=== PATIENT | female | born 1955 | race Caucasian/White ===

== ENCOUNTER 2025-02-22 10:07 | Outpatient (AMB) | payer OTHER, SELFPAY ==
--- NOTE | 2025-02-22 10:11 | A.OFFPC_ITS ---
Vital Signs 02/22/25 10:14 Height 5 ft 2.99 in Weight 172 lb 2 oz BMI 30.5 BP 120/70 Blood Pressure Location Lt brachial Position Sitting Pulse 76 Pulse Source Pulse Oximeter Temp 97.1 F Temp Source Temporal Artery Scan Intake Visit Reasons: establish care Intake Note: Patient is a new patient here to establish care for RA, DM, HTN, HLD. Transferring care from Dr Moses Mims ([facility]). Medical records have been requested and have not received. Mobile Designer Required: No Cook Cashier Food Prep: Not Required per policy Accompanied by: Self / Same As Patient Allergies celecoxib [From Celebrex] Allergy (Intermediate, Verified 02/22/25 10:43) Rash Medication List - Last Reconciled 02/22/25 by BITA Monreal alendronate 70 mg PO QWEEK aspirin 81 mg PO DAILY atorvastatin 40 mg PO DAILY cholecalciferol (vitamin D3) 50 mcg PO DAILY cyanocobalamin (vitamin B-12) 500 mcg PO DAILY etanercept (Enbrel) 50 mg subcut QWEEK folic acid 1 mg PO DAILY lisinopril 10 mg PO DAILY metformin 500 mg PO BID methotrexate sodium 15 mg PO QWEEK omeprazole 20 mg PO DAILY Tobacco use date assessed: 02/22/25 Fall risk assessment: 1 Fall in past year Last assessed Fall Risk: 02/22/25 Dental Screening Dental Screen Date: 02/22/25 Did you have a dental visit in the last 12 months?: No Did you have a dental problem in the last 6 months where you did not have access to dental care?: No Was dental information given to patient?: No HPI establish care HPI Details Previous PCP: Dr. Lucas, [facility] Last visit: last year Last PE: same Specialist: rheumatology, needs podiatry OBGYN: hysterectomy Past medical history: DM, HTN, HLD, RA Medications: Family HX: Problem: Reports that she need a sales account manager for Diabetic foot care Reports difficultly holding her urine sometime Reports getting the urge and if she does not go right away, she gets the leakage urge to go and if she does go right a way, she gets the leakage will refer her to urology, she denies any other urinary symptom RA-hurts in hands/feet and knees reports needing a right knee but she is not doing it She has a Dexa Scan pending in April, was ordered by her rheumatology (Dr. Johnson) No chest pain,sob, heart palpitation No abominal pain/change in bowel habit [facility] Medical History (Updated 02/22/25 @ 11:02 by BITA Monreal) Rheumatoid arthritis HTN (hypertension) HLD (hyperlipidemia) Diabetes mellitus Surgical History (Updated 02/22/25 @ 10:25 by JUANA Orozco) History of hysterectomy History of hernia repair History of cholecystectomy History of 3 sections Social History (Updated 02/22/25 @ 10:12 by JUANA Orozco) Housing: House Alcohol intake: never Patient Tobacco Use Status: Never used Tobacco e-Cigarette/Vaping Use: Never Used Second Hand Smoke Exposure: No service: No Current occupational status: retired Cognitive needs: No Hearing needs: No Vision needs: Yes (Glasses) Questionnaire PHQ-9 Over the last 2 weeks, how often have you been bothered by any of the following problems? 1. Little interest or pleasure in doing things: not at all 2. Feeling down, depressed, or hopeless: not at all 3. Trouble falling or staying asleep, or sleeping too much: not at all 4. Feeling tired or having little energy: not at all 5. Poor appetite or overeating: not at all 6. Feeling bad about yourself - or that you are a failure or have let yourself or your family down: not at all 7. Trouble concentrating on things, such as reading the newspaper or watching television: not at all 8. Moving or speaking so slowly that other people could have noticed. Or the opposite - being so fidgety or restless that you have been moving around a lot more than usual: not at all 9. Thoughts that you would be better off or of hurting yourself in some way: not at all Total score: 0 Depression Screening Interpretation: Negative Depression Screening Done: Yes Source: Developed by Drs. Dominic Morin, Georgia Bentley, Shravan Meadows and colleagues, with an educational helen from [employer]. Thrive Questionnaire Date Thrive assessed: 02/20/25 I am a: Patient What is your living situation today?: I have a steady place to live Within the past 12 months, did the food you bought not last and you didn't have the money to get more?: Sometimes True Within the past 12 months, did you worry whether your food would run out before you got money to buy more?: Sometimes True Do you have trouble paying for medicines?: No Do you have trouble getting transportation to medical appointments?: No Do you have trouble paying your heating and electricity bill?: Yes Do you have trouble taking care of your child, family member or friend?: No Do you have trouble with day-to-day activities such as bathing, preparing meals, shopping, managing finances, etc.?: No Are you currently unemployed and looking for a job?: No Are you interested in more education?: No Currently or been in a relationship where the following occur: I choose not to answer THRIVE Score: 3 AUDIT C Alcohol Use Questionnaire (AUDIT-C) 1. How often do you have a drink containing alcohol?: Never 2. How many drinks containing alcohol do you have on a typical day when you are drinking?: 1 or 2 3. How often do you have six or more drinks on one occasion?: Never Total Score: 0 VARSHA-7 AMB Questionnaire VARSHA-7 Date VARSHA - 7 assessed: 02/22/25 Feeling nervous, anxious, or on edge: 0 = Not at all Not being able to stop or control worryin = Not at all Worrying too much about different things: 1 = Several days Trouble relaxin = Not at all Being so restless that it is hard to sit still: 0 = Not at all Becoming easily annoyed or irritable: 0 = Not at all Feeling afraid as if something awful might happen: 0 = Not at all Total VARSHA-7 score (0-4 normal; 5-9 mild; 10-14 moderate; 15-21 severe): 1 Source: Developed by Drs. Dominic Morin, Georgia Bentley, Shravan Meadows and colleagues, with an educational helen from [employer]. Physical exam (Primary Care) Vital Signs: Last Vital Signs Temp 97.1 F 02/22/25 10:14 Pulse 76 02/22/25 10:14 BP 120/70 02/22/25 10:14 BMI result Body Mass Index 30.5 Tobacco/Smoking Status: Tobacco use Status Tobacco use date assessed 02/22/25 02/22/25 10:27 Patient Tobacco Use Status Never used Tobacco 02/22/25 10:27 e-Cigarette/Vaping Use Never Used 02/22/25 10:27 PHQ-9: PHQ-9 Score PHQ-9: Total score 0 02/22/25 10:27 Depression Screening Interpretation: Negative Thrive Assessment: Date of Thrive Assessment Date Thrive assessed 02/20/25 02/22/25 10:27 Currently or been in a relationship where the following occur: I choose not to answer Results AMB Hemoglobin A1c AMB Hemoglobin A1c 7.2 % Last Edit by JUANA Orozco on 02/22/25 10:40 Results Reviewed Results Reviewed: Laboratory Last Values Hgb A1c (Clinic) 7.2 % (4.0-6.0) H 02/22/25 10:27 Coding Assessment & Plan Assessment & Plan Orders: Orders AMB Hemoglobin A1c Today Z13.9 - Encounter for screening, unspecified Comprehensive [place]. Panel Fast Today E11.9 - Type 2 diabetes mellitus without complications, E78.5 - Hyperlipidemia, unspecified, I10 - Essential (primary) hypertension, M06.9 - Rheumatoid arthritis, unspecified, Z00.00 - Encounter for general adult medical examination without abnormal findings Lipid Panel Today E11.9 - Type 2 diabetes mellitus without complications, E78.5 - Hyperlipidemia, unspecified, I10 - Essential (primary) hypertension, M06.9 - Rheumatoid arthritis, unspecified, Z00.00 - Encounter for general adult medical examination without abnormal findings TSH reflex Free T4 Today E11.9 - Type 2 diabetes mellitus without complications, E78.5 - Hyperlipidemia, unspecified, I10 - Essential (primary) hypertension, M06.9 - Rheumatoid arthritis, unspecified, Z00.00 - Encounter for general adult medical examination without abnormal findings Complete Blood Count Auto Diff Today E11.9 - Type 2 diabetes mellitus without complications, E78.5 - Hyperlipidemia, unspecified, I10 - Essential (primary) hypertension, M06.9 - Rheumatoid arthritis, unspecified, Z00.00 - Encounter for general adult medical examination without abnormal findings UA CC w/rflx Micro + Cult Today E11.9 - Type 2 diabetes mellitus without complications, E78.5 - Hyperlipidemia, unspecified, I10 - Essential (primary) hypertension, M06.9 - Rheumatoid arthritis, unspecified, Z00.00 - Encounter for general adult medical examination without abnormal findings Vitamin D 25-OH Total Today E11.9 - Type 2 diabetes mellitus without complications, E78.5 - Hyperlipidemia, unspecified, I10 - Essential (primary) hypertension, M06.9 - Rheumatoid arthritis, unspecified, Z00.00 - Encounter for general adult medical examination without abnormal findings Medications: New folic acid 1 mg PO DAILY 90 tabs 3RF
[2025-02-22 10:14] VITALS: BP 120/70; PULSE 76; TEMP 36.2; BMI 30.5
== END 2025-02-22 11:13 | disposition home or self-care (01) ==
LOC: HO.HMCH 10:08
DX: Z13.9 Encounter for screening, unspecified (principal)

== ENCOUNTER → 2025-02-22 10:07 | Outpatient (BNVA) | payer MEDICARE, SELFPAY | DX: H61.23 Impacted cerumen, bilateral (principal); N39.46 Mixed incontinence; M05.79 Rheumatoid arthritis with rheumatoid factor of multiple sites without organ or systems involvement; E11.9 Type 2 diabetes mellitus without complications; E78.5 Hyperlipidemia, unspecified; I10 Essential (primary) hypertension | CPT/HCPCS: 83036; 96127 ==

== ENCOUNTER 2025-03-16 14:37 | Outpatient (AMB) | payer OTHER, SELFPAY ==
--- NOTE | 2025-03-16 14:44 | A.OFFPC_ITS ---
Vital Signs 03/16/25 14:45 03/16/25 15:02 03/16/25 15:09 Height 5 ft 2.99 in Weight 174 lb BMI 30.8 BP 172/80 H 140/80 H 132/68 Blood Pressure Location Lt brachial Lt brachial Lt brachial Position Sitting Sitting Sitting Pulse 101 H 78 Pulse Source Pulse Oximeter Pulse Oximeter Temp 97.1 F Temp Source Temporal Artery Scan Pulse Oximetry (%) 93 Oxygen Delivery Method Room Air Intake Visit Reasons: Ear Flush Intake Note: Patient is here to follow up on Ear flush. Dance Master Required: No Seamless Tube Roller: Not Required per policy Accompanied by: Self / Same As Patient Allergies celecoxib [From Celebrex] Allergy (Intermediate, Verified 03/16/25 14:45) Rash Medication List - Last Reconciled 03/16/25 by Diane Sage PA-C alendronate 70 mg PO QWEEK aspirin 81 mg PO DAILY atorvastatin 40 mg PO DAILY cholecalciferol (vitamin D3) 50 mcg PO DAILY cyanocobalamin (vitamin B-12) 500 mcg PO DAILY etanercept (Enbrel) 50 mg subcut QWEEK folic acid 1 mg PO DAILY lisinopril 10 mg PO DAILY metformin 500 mg PO BID methotrexate sodium 15 mg PO QWEEK omeprazole 20 mg PO DAILY Tobacco use date assessed: 03/16/25 Fall risk assessment: No Falls in past year Last assessed Fall Risk: 03/16/25 Dental Screening Dental Screen Date: 02/22/25 HPI Ear Flush HPI Details 69-year-old female coming to the office for ear cleaning. [facility] Medical History Rheumatoid arthritis HTN (hypertension) HLD (hyperlipidemia) Diabetes mellitus Surgical History History of hysterectomy History of hernia repair History of cholecystectomy History of 3 sections Social History Housing: House Alcohol intake: never Patient Tobacco Use Status: Never used Tobacco e-Cigarette/Vaping Use: Never Used Second Hand Smoke Exposure: No service: No Current occupational status: retired Cognitive needs: No Hearing needs: No Vision needs: Yes (Glasses) Questionnaire PHQ-9 Over the last 2 weeks, how often have you been bothered by any of the following problems? 1. Little interest or pleasure in doing things: nearly every day 2. Feeling down, depressed, or hopeless: not at all 3. Trouble falling or staying asleep, or sleeping too much: not at all 4. Feeling tired or having little energy: not at all 5. Poor appetite or overeating: not at all 6. Feeling bad about yourself - or that you are a failure or have let yourself or your family down: not at all 7. Trouble concentrating on things, such as reading the newspaper or watching television: not at all 8. Moving or speaking so slowly that other people could have noticed. Or the opposite - being so fidgety or restless that you have been moving around a lot more than usual: not at all 9. Thoughts that you would be better off or of hurting yourself in some way: not at all Total score: 3 Depression Screening Interpretation: Positive Depression Screening Done: Yes Source: Developed by Drs. Dominic Morin, Georgia Bentley, Shravan Meadows and colleagues, with an educational helen from [employer]. Thrive Questionnaire Date Thrive assessed: 02/20/25 I am a: Patient What is your living situation today?: I have a steady place to live Within the past 12 months, did the food you bought not last and you didn't have the money to get more?: Sometimes True Within the past 12 months, did you worry whether your food would run out before you got money to buy more?: Sometimes True Do you have trouble paying for medicines?: No Do you have trouble getting transportation to medical appointments?: No Do you have trouble paying your heating and electricity bill?: Yes Do you have trouble taking care of your child, family member or friend?: No Do you have trouble with day-to-day activities such as bathing, preparing meals, shopping, managing finances, etc.?: No Are you currently unemployed and looking for a job?: No Are you interested in more education?: No Currently or been in a relationship where the following occur: I choose not to answer THRIVE Score: 3 VARSHA-7 AMB Questionnaire VARSHA-7 Date VARSHA - 7 assessed: 02/22/25 Source: Developed by Drs. Dominic Morin, Georgia Bentley, Shravan Meadows and colleagues, with an educational helen from [employer]. Review of Systems ENT Details: Ear clogged feeling and decreased hearing bilaterally Physical exam (Primary Care) Vital Signs: Last Vital Signs Temp 97.1 F 03/16/25 14:45 Pulse 78 03/16/25 15:09 BP 132/68 03/16/25 15:09 Pulse Ox 93 03/16/25 14:45 Oxygen Delivery Method Room Air 03/16/25 14:45 BMI result Body Mass Index 30.8 Tobacco/Smoking Status: Tobacco use Status Tobacco use date assessed 03/16/25 03/16/25 14:53 Patient Tobacco Use Status Never used Tobacco 03/16/25 14:44 e-Cigarette/Vaping Use Never Used 03/16/25 14:44 PHQ-9: PHQ-9 Score PHQ-9: Total score 3 03/16/25 15:02 Depression Screening Interpretation: Positive Thrive Assessment: Date of Thrive Assessment Date Thrive assessed 02/20/25 03/16/25 14:44 Currently or been in a relationship where the following occur: I choose not to answer Const General: cooperative, healthy appearing, comfortable and no acute distress Orientation/consciousness: patient oriented x3 HENMT Head: Yes normocephalic Ears: hearing grossly normal bilaterally and Abnormal EAC present cerumen impaction bilateral General nose exam: Normal external nose present Resp Effort & Inspection: normal respiratory effort Cardio Rate: regular rate Neuro General: patient oriented x3 Gait exam (Neuro): Normal gait present Psych Affect: normal affect Attitude: cooperative Insight: Good insight present (Psych) Judgement: Good judgement present (Psych) Office Procedures Cerumen Removal From which ear canal was the cerumen removed: bilateral Removal: irrigation and cerumen loop/spoon Notes: patient tolerated procedure well, no complications and ear canal clear [id number] Irrigation/Lavage Coding Level of Care Code Est Pt Level 2 (14445) Diagnoses Bilateral impacted cerumen H61.23 CPT Codes Office Procedure - CPT: 23353-Ipg Irrigation/Lavage ([id number]) Assessment & Plan Assessment & Plan (1) Bilateral impacted cerumen: Code(s): H61.23 - Impacted cerumen, bilateral Category: Medical Plan: Cerumen was successfully removed using lighted curette and irrigation. Patient tolerated the procedure well did have mild dizziness that resolved shortly after procedure was completed. Ear canal is clean and TMs were visualized as intact with well aerated middle ear spaces without perforation or retraction. Ear canals did seem irritated from the cleaning recommend the use of Dermotic drops to reducing inflammation otherwise follow up as needed for this concern. Plan This note was constructed using voice recognition software. While every effort has been made to ensure accuracy and wildlife removal specialist, still areas may have been included sometimes these areas may affect the content or meeting of the given symptoms. Total time spent caring for the patient today was 20 minutes. This includes time spent before the visit reviewing the chart, time spent during the visit, and time spent after the visit and documentation. Medications: New fluocinolone acetonide oil 0.01% (DermOtic Oil) 5 drps otic (ear) left BID 20 mL 0RF 7 days
[2025-03-16 14:45] VITALS: BP 172/80; PULSE 101; TEMP 36.2; O2SAT 93; BMI 30.8
[2025-03-16 15:02] VITALS: BP 140/80
[2025-03-16 15:09] VITALS: BP 132/68; PULSE 78
== END 2025-03-16 15:32 | disposition home or self-care (01) ==
LOC: HO.HMCH 14:38
DX: H61.23 Impacted cerumen, bilateral (principal)

== ENCOUNTER → 2025-03-16 14:37 | Outpatient (BNVA) | payer MEDICARE, SELFPAY | DX: H61.23 Impacted cerumen, bilateral (principal) | CPT/HCPCS: 69210 ==

== ENCOUNTER 2025-03-31 14:46 | Outpatient (REF) | payer OTHER, SELFPAY ==
[2025-03-31 15:01] LABS: MANUAL DIFF FLAG NO
[2025-03-31 15:58] LABS: Appearance Urine Clear; Color Urine Yellow; Glucose Urine UA Negative (Negative); Leukocyte Esterase Urine Negative (Negative); Nitrite Urine Negative (Negative); Specific Gravity - Urine >= 1.030 (1.005-1.025); Urine Blood Negative (Negative); Urine Ketones Trace mg/dL (Negative); Urine Protein Trace mg/dL (Neg-Trace)
[2025-03-31 16:07] LABS: Basophils Absolute Auto 0.1 X10*3/uL (0.0-0.2); Basophils Percent Auto 1.2 % (0-2); Eosinophils Absolute Auto 0.2 X10*3/uL (0.0-0.4); Eosinophils Percent Auto 2.4 % (0-4); Hemoglobin 14.1 g/dl (12.0-16.0); Imm Gran Abs Auto 0.07 X10*3/uL (0.00-0.03); Imm Gran Pct Auto 0.7 % (0.0-0.4); Lymphocytes Percent Auto 19.7 % (20-40); Mean Corpuscular HGB Conc 32.8 g/dl (31.0-35.0); Mean Corpuscular Hemoglobin 31.5 pg (27.0-33.0); Mean Platelet Volume 10.5 fL (9.4-12.3); Monocytes Absolute Auto 0.8 X10*3/uL (0.1-1.2); Monocytes Percent Auto 7.8 % (2-11); Neutrophils Absolute Auto 6.8 x10*3/uL (2.0-8.3); Neutrophils Percent Auto 68.2 % (45-73); Platelet Count 370 X10*3/uL (160-400); Red Blood Count 4.48 X10*6/uL (4.20-5.50); Red Cell Distribution Width 13.5 % (11.0-16.0); White Blood Count 9.9 X10*3/uL (4.8-10.8)
[2025-03-31 16:31] LABS: Alanine Aminotransferase 169 U/L (0-31); Albumin Level 4.2 g/dL (3.5-5.0); Alkaline Phosphatase 75 U/L (39-117); Anion Gap 14 (12-20); Aspartate Amino Transferase 123 U/L (5-31); Bilirubin Total 1.2 mg/dL (0.0-1.0); Blood Urea Nitrogen 14 mg/dL (9-16); Calcium 9.6 mg/dL (8.4-10.2); Carbon Dioxide 26 mmol/L (22-29); Chloride 106 mmol/L (96-108); Cholesterol 142 mg/dL (<200); Estimated Glomerular Filt Rate > 60; Glucose Fasting 135 mg/dL (60-99); HDL Cholesterol 33 mg/dL (>40); LDL Cholesterol Calculated 59 mg/dL (<100); Potassium 4.2 mmol/L (3.3-5.1); Sodium 142 mmol/L (135-145); Total Protein 6.9 g/dL (6.5-8.0); Triglycerides 251 mg/dL (<150)
[2025-03-31 16:41] LABS: TSH reflex Free T4 3.59 uIU/mL (0.32-4.0); Vitamin D 25-OH Total 60.2 ng/mL (>30)
== END 2025-03-31 14:47 | disposition home or self-care (01) ==
LOC: HO.LAB 14:46
DX: Z00.00 Encounter for general adult medical examination without abnormal findings (principal); E11.9 Type 2 diabetes mellitus without complications; E78.5 Hyperlipidemia, unspecified; I10 Essential (primary) hypertension; M06.9 Rheumatoid arthritis, unspecified
CPT/HCPCS: 36415; 80053; 80061; 81003; 82306; 84443; 85025

== ENCOUNTER 2025-04-05 09:31 | Outpatient (AMB) | payer OTHER, SELFPAY ==
[2025-04-05 09:34] VITALS: BP 178/96; PULSE 98; O2SAT 98; BMI 31.0
--- NOTE | 2025-04-05 09:34 | MHC.PC.OV ---
Vital Signs 04/05/25 09:34 04/05/25 10:07 Height 5 ft 2.99 in Weight 175 lb BMI 31.0 BP 178/96 H 152/82 H Blood Pressure Location Lt brachial Lt brachial Position Sitting Sitting Pulse 98 Pulse Source Pulse Oximeter Pulse Oximetry (%) 98 Oxygen Delivery Method Room Air Intake Visit Reasons: Lab review/ HTN/HLD/DM Manufacturing Technologist Required: No Accompanied by: Self / Same As Patient Allergies celecoxib (From Celebrex) Allergy (Intermediate, Verified 04/05/25 09:53) Rash Medication List - Last Reconciled 04/05/25 by BITA Monreal alendronate 70 mg PO QWEEK aspirin 81 mg PO DAILY atorvastatin 40 mg PO DAILY cholecalciferol (vitamin D3) 50 mcg PO DAILY cyanocobalamin (vitamin B-12) 500 mcg PO DAILY etanercept (Enbrel) 50 mg subcut QWEEK fluocinolone acetonide oil 0.01% (DermOtic Oil) 5 drps otic (ear) left BID 7 days folic acid 1 mg PO DAILY lisinopril 10 mg PO DAILY metformin 500 mg PO BID methotrexate sodium 15 mg PO QWEEK omeprazole 20 mg PO DAILY Tobacco use date assessed: 04/05/25 Fall risk assessment: No Falls in past year Last assessed Fall Risk: 04/05/25 Dental Screening Dental Screen Date: 04/05/25 Did you have a dental visit in the last 12 months?: No Did you have a dental problem in the last 6 months where you did not have access to dental care?: No Was dental information given to patient?: No HPI Lab review/ HTN/HLD/DM HPI Details The patient is a 69 year old female presenting for follow up appointment for hypertension, HLD, DM Patient blood pressure was noted to be elevated at 178/96. Rechecked blood pressure was 152/82. The patient denies any chest pain heart palpitation dizziness or shortness of breath. She reports that she had a small ice coffee this morning around 730 a.m. she is currently on lisinopril 10 mg daily. Reports that she took all her medications this morning early. We will change the patient lisinopril to a combination medication, lisinopril-hydrochlorothiazide. The patient will return in 1 week for blood pressure check. Reports that she does not check her blood pressure at home because she lost her blood pressure machine when she moved. A new blood pressure machine was ordered for the patient. The patient liver enzymes was also noted to be significantly elevated. Atorvastatin was placed on hold, liver panel was ordered along with an ultrasound with elastrography. She denies abdominal pain or change in bowel habits. Reports heartburn on and off depending on what she eats. She is currently on omeprazole 20 mg daily. [facility], [facility] Medical History Rheumatoid arthritis HTN (hypertension) HLD (hyperlipidemia) Diabetes mellitus Surgical History History of hysterectomy History of hernia repair History of cholecystectomy History of 3 sections Social History Housing: House Alcohol intake: never Patient Tobacco Use Status: Never used Tobacco e-Cigarette/Vaping Use: Never Used Second Hand Smoke Exposure: No service: No Current occupational status: retired Cognitive needs: No Hearing needs: No Vision needs: Yes (Glasses) Questionnaire PHQ-9 Over the last 2 weeks, how often have you been bothered by any of the following problems? 1. Little interest or pleasure in doing things: nearly every day 2. Feeling down, depressed, or hopeless: not at all 3. Trouble falling or staying asleep, or sleeping too much: not at all 4. Feeling tired or having little energy: not at all 5. Poor appetite or overeating: not at all 6. Feeling bad about yourself - or that you are a failure or have let yourself or your family down: not at all 7. Trouble concentrating on things, such as reading the newspaper or watching television: not at all 8. Moving or speaking so slowly that other people could have noticed. Or the opposite - being so fidgety or restless that you have been moving around a lot more than usual: not at all 9. Thoughts that you would be better off or of hurting yourself in some way: not at all Total score: 3 Depression Screening Interpretation: Positive Depression Screening Done: Yes Source: Developed by Drs. Dominic Morin, Georgia Bentley, Shravan Meadows and colleagues, with an educational helen from [employer]. Thrive Questionnaire Date Thrive assessed: 04/05/25 I am a: Patient What is your living situation today?: I have a steady place to live Within the past 12 months, did the food you bought not last and you didn't have the money to get more?: Sometimes True Within the past 12 months, did you worry whether your food would run out before you got money to buy more?: Sometimes True Do you have trouble paying for medicines?: No Do you have trouble getting transportation to medical appointments?: No Do you have trouble paying your heating and electricity bill?: Yes Do you have trouble taking care of your child, family member or friend?: No Do you have trouble with day-to-day activities such as bathing, preparing meals, shopping, managing finances, etc.?: No Are you currently unemployed and looking for a job?: No Are you interested in more education?: No Currently or been in a relationship where the following occur: I choose not to answer THRIVE Score: 3 AUDIT C Alcohol Use Questionnaire (AUDIT-C) 1. How often do you have a drink containing alcohol?: Never 3. How often do you have six or more drinks on one occasion?: Never Total Score: 0 VARSHA-7 AMB Questionnaire VARSHA-7 Date VARSHA - 7 assessed: 04/05/25 Feeling nervous, anxious, or on edge: 0 = Not at all Not being able to stop or control worryin = Not at all Worrying too much about different things: 0 = Not at all Trouble relaxin = Not at all Being so restless that it is hard to sit still: 0 = Not at all Becoming easily annoyed or irritable: 0 = Not at all Feeling afraid as if something awful might happen: 0 = Not at all Total VARSHA-7 score (0-4 normal; 5-9 mild; 10-14 moderate; 15-21 severe): 0 Source: Developed by Drs. Dominic Morin, Georgia Bentley, Shravan Meadows and colleagues, with an educational helen from [employer]. Review of Systems Const Denies headache(s) Eyes Denies loss of vision ENT Denies vertigo, Denies dizziness, Denies headache(s) and Denies sore throat Card Denies chest pain, Denies leg edema and Denies lightheadedness Resp Denies cough, Denies hemoptysis and Denies wheezing GI Denies abdominal pain, Denies melena, Denies constipation, Reports heartburn (On and off depending on what she eats), Denies diarrhea and Denies vomiting Denies urinary frequency, Denies dysuria and Denies urinary urgency Neuro Denies Abnormal speech present, Denies behavioral changes, Denies vertigo, Denies dizziness, Denies headache(s), Denies loss of vision and Denies memory loss Psych Denies anxiety, Denies behavioral changes, Denies depression, Denies memory loss and Denies panic attacks Lj/Lymph Denies easy bleeding and Denies easy bruising Aller/Immun Denies wheezing Physical exam (Primary Care) Vital Signs: Last Vital Signs Pulse 98 04/05/25 09:34 BP 152/82 H 04/05/25 10:07 Pulse Ox 98 04/05/25 09:34 Oxygen Delivery Method Room Air 04/05/25 09:34 BMI result Body Mass Index 31.0 Tobacco/Smoking Status: Tobacco use Status Tobacco use date assessed 04/05/25 04/05/25 09:40 Patient Tobacco Use Status Never used Tobacco 04/05/25 09:40 e-Cigarette/Vaping Use Never Used 04/05/25 09:40 PHQ-9: PHQ-9 Score PHQ-9: Total score 3 04/05/25 09:56 Depression Screening Interpretation: Positive Thrive Assessment: Date of Thrive Assessment Date Thrive assessed 04/05/25 04/05/25 09:40 Currently or been in a relationship where the following occur: I choose not to answer Const General: healthy appearing, no acute distress, alert and awake Nutritional Appearance: well nourished Orientation/consciousness: oriented to person, oriented to place and oriented to time HENPA Ears: external ears normal General nose exam: Normal external nose present Eyes Conjunctivae: conjunctivae normal Sclerae: sclerae normal Pupils: Equal, round and reactive pupils present Neck Neck: Yes no lymphadenopathy and Yes no JVD Thyroid: Thyroid normal Carotids: no bruits Resp Effort & Inspection: normal respiratory effort and not tachypneic Auscultation: no crackles, no rales, no rhonchi and no wheezes Cardio Rate: regular rate Rhythm: regular rhythm Heart sounds: no murmurs and normal S1 and S2 GI Palpation (GI): Soft to palpation, nontender, no hepatomegaly and no splenomegaly Auscultation: normal bowel sounds Skin General skin exam: no rashes or lesions noted and dry skin Neuro General: oriented to person, oriented to place and oriented to time Cranial nerves: Yes Equal, round and reactive pupils present Speech: No Abnormal speech present Gait exam (Neuro): Normal gait present Motor exam (neuro): no tremor noted Extrem Right upper extremity: full ROM Left upper extremity: full ROM Right lower extremity: full ROM; no edema Left lower extremity: full ROM; no edema Psych Mental Status: mental status grossly normal Speech and movement: Normal speech and movement present Affect: normal affect Attitude: cooperative Thought process: Normal thought process present Results Reviewed Results Reviewed: Laboratory Tests 02/22/25 03/31/25 03/31/25 10:27 14:54 14:59 WBC 9.9 RBC 4.48 Hgb 14.1 Hct 43.0 MCV 96.0 MCH 31.5 MCHC 32.8 RDW 13.5 Plt Count 370 Sodium 142 Potassium 4.2 Chloride 106 Carbon Dioxide 26 Anion Gap 14 BUN 14 Creatinine 0.67 Estimated GFR > 60 Fasting Glucose 135 H Hgb A1c (Clinic) 7.2 H Calcium 9.6 Total Bilirubin 1.2 H AST 123 H ALT 169 H Alkaline Phosphatase 75 Total Protein 6.9 Albumin 4.2 Triglycerides 251 H Cholesterol 142 LDL Cholesterol, Calc 59 HDL Cholesterol 33 L 25-OH Vitamin D Total 60.2 TSH 3.59 Urine Color Yellow Urine Appearance Clear Urine pH 6.0 Ur Specific [place] >= 1.030 H Urine Protein Trace Urine Glucose (UA) Negative Urine Ketones Trace Urine Blood Negative Urine Nitrite Negative Ur Leukocyte Esterase Negative Coding Level of Care Code Est Pt Level 4 (80666) Diagnoses Elevated liver enzymes R74.8 Hypertension, unspecified type I10 Hypertension type: unspecified Hyperlipidemia, unspecified hyperlipidemia type E78.5 Hyperlipidemia type: unspecified Type 2 diabetes mellitus without complication, without long-term current use of insulin E11.9 Diabetes mellitus type: type 2 Diabetes mellitus lobsterman insulin use: without lobsterman use Diabetes mellitus complication status: without complication Time Spent (min) 39 Assessment & Plan Assessment & Plan (1) Elevated liver enzymes: Code(s): R74.8 - Abnormal levels of other serum enzymes Category: Medical Plan: AST 123, ALT 169, on 03/31/2025 The patient denies abdominal pain. Reports that she does not drink much or take much Tylenol. Atorvastatin 40 mg held. Liver panel ordered and abdominal ultrasound with elastography ordered to further evaluate. (2) HTN (hypertension): Code(s): I10 - Essential (primary) hypertension Category: Medical Qualifiers: Hypertension type: unspecified Qualified Code(s): I10 - Essential (primary) hypertension Plan: The patient initial blood pressure was 178/96. Rechecked blood pressure was 152/82. The patient reports drinking a small cup of ice coffee this morning. She denies any chest pain shortness of breath or heart palpitation. The patient is currently on lisinopril 10 mg daily. Lisinopril 10 mg stopped and lisinopril-hydrochlorothiazide 10-12.5 mg daily started. The patient was ordered a blood pressure machine for her to check her blood pressure at home. Patient to return in 1 week for BP check by nurse. Reinforced low-salt diet. (3) HLD (hyperlipidemia): Code(s): E78.5 - Hyperlipidemia, unspecified Category: Medical Qualifiers: Hyperlipidemia type: unspecified Qualified Code(s): E78.5 - Hyperlipidemia, unspecified Plan: Triglycerides 151, total cholesterol 142, LDL 59, HDL 32. Improvement in cholesterol, however, the patient liver enzymes are significantly elevated. Atorvastatin 10 mg was placed on hold until liver workup is completed. Discussed with the patient that now she needs to be even more strict her with her diet. Limit high cholesterol/sugar/carbohydrate and activity as tolerated. Encouraged fish oil. We will recheck a lipid panel in 3 months (4) Diabetes mellitus: Code(s): E11.9 - Type 2 diabetes mellitus without complications Category: Medical Qualifiers: Diabetes mellitus type: type 2 Diabetes mellitus custodial insulin use: without custodial use Diabetes mellitus complication status: without complication Qualified Code(s): E11.9 - Type 2 diabetes mellitus without complications Plan: Fasting glucose 35, A1c 7.2%, goal is less than 7% Reinforced low sugar/carbohydrate diet and activity as tolerated Continue metformin 500mg bid We will recheck fasting glucose and A1c in 3 months Orders: Orders Prothrombin Time INR Today R74.8 - Abnormal levels of other serum enzymes US abdomen choudhury w elastography Today R74.8 - Abnormal levels of other serum enzymes Lipid Panel 3 Months E11.9 - Type 2 diabetes mellitus without complications, E78.5 - Hyperlipidemia, unspecified, I10 - Essential (primary) hypertension, R74.8 - Abnormal levels of other serum enzymes UA CC w/rflx Micro + Cult 3 Months E11.9 - Type 2 diabetes mellitus without complications, E78.5 - Hyperlipidemia, unspecified, I10 - Essential (primary) hypertension, R74.8 - Abnormal levels of other serum enzymes Comprehensive Farrell. Panel Fast 3 Months E11.9 - Type 2 diabetes mellitus without complications, E78.5 - Hyperlipidemia, unspecified, I10 - Essential (primary) hypertension, R74.8 - Abnormal levels of other serum enzymes Liver Panel Today R74.8 - Abnormal levels of other serum enzymes Hepatitis A,B,C Profile Today R74.8 - Abnormal levels of other serum enzymes Complete Blood Count Auto Diff 3 Months E11.9 - Type 2 diabetes mellitus without complications, E78.5 - Hyperlipidemia, unspecified, I10 - Essential (primary) hypertension, R74.8 - Abnormal levels of other serum enzymes TSH reflex Free T4 3 Months E11.9 - Type 2 diabetes mellitus without complications, E78.5 - Hyperlipidemia, unspecified, I10 - Essential (primary) hypertension, R74.8 - Abnormal levels of other serum enzymes Medications: New blood sugar diagnostic (OneTouch Verio test strips) As directed check blood sugar two times a day 50 ea 3RF E11.9 - Type 2 diabetes mellitus without complications [blood pressure machine] As directed check blood two times a day, in the mornings and in the evenings 1 ea 0RF I10 - Essential (primary) hypertension lisinopril-hydrochlorothiazide 10-12.5 mg 1 tab PO DAILY 30 tabs 3RF blood-glucose meter (OneTouch Verio Reflect Meter) As directed check blood two times a day 1 ea 0RF E11.9 - Type 2 diabetes mellitus without complications lancets As directed check blood sugar two time a day 100 ea 3RF E11.9 - Type 2 diabetes mellitus without complications Discontinued lisinopril Discontinued Reason: Doctor's Order 10 mg PO DAILY 90 tabs 0RF On Hold atorvastatin Hold Comment: Doctor's Order 40 mg PO DAILY 30 tabs 0RF
[2025-04-05 10:07] VITALS: BP 152/82
== END 2025-04-05 10:23 | disposition home or self-care (01) ==
LOC: HO.HMCH 09:32
DX: R74.8 Abnormal levels of other serum enzymes (principal); I10 Essential (primary) hypertension; E78.5 Hyperlipidemia, unspecified; E11.9 Type 2 diabetes mellitus without complications

== ENCOUNTER → 2025-04-05 09:31 | Outpatient (BNVA) | payer OTHER, SELFPAY | DX: Z13.89 Encounter for screening for other disorder (principal) ==

== ENCOUNTER → 2025-04-13 09:53 | Outpatient (BNVA) | payer MEDICARE, SELFPAY | DX: Z01.30 Encounter for examination of blood pressure without abnormal findings (principal) | CPT/HCPCS: 99211 ==

== ENCOUNTER 2025-04-22 09:24 | Outpatient (REF) | payer MEDICARE, SELFPAY ==
--- NOTE | ~2025-04-22 | US_ITS ---
EXAMINATION: US ABDOMEN LIMITED WITH LIVER ELASTOGRAPHY HISTORY: R74.8 - Abnormal levels of other serum enzymes TECHNIQUE: Real-time grayscale ultrasound imaging of the right upper quadrant was performed and images were reviewed. COMPARISON: There are no prior studies available for comparison. FINDINGS: Liver: The right lobe of the liver measures 18.6 cm in size. The left lobe of the liver measures 13.8 cm in size. The liver demonstrates heterogeneously increased echotexture, consistent with steatosis. There is focal fatty sparing in the left lobe. No focal mass or intrahepatic biliary ductal dilatation is identified. There is normal hepatopedal flow in the portal vein. Ultrasound elastography of the liver was performed with 10 separate measurements of the liver parenchyma with the patient in the supine position. Measurements were obtained approximately 2 cm below Melvin's capsule and perpendicular to the capsule. The median shear wave velocity is 1.90 m/s. The interquartile range/median (IQR/median) is 0.07. Gallbladder and biliary tree: The gallbladder is surgically absent. The common bile duct measures 8 mm diameter. Right Kidney: The right kidney measures 9.6 cm in length. There is a 5 mm cyst with wall calcification in the interpolar region. There is no hydronephrosis. Pancreas: The pancreatic head, neck, and body are unremarkable. The pancreatic tail is obscured by bowel gas. Abdominal aorta and inferior vena cava: The visualized portions of the abdominal aorta and inferior vena cava are normal in caliber. There is no free fluid in the right upper quadrant. US/US abdomen choudhury w elastography IMPRESSION: Hepatomegaly and hepatic steatosis. The median shear wave velocity in the liver is 1.90 m/s, corresponding to a median liver stiffness of 11.05 kPa. The IQR/median value is 0.07. This is indicative of a quality data set. Findings are indicative of a high elastography value suggestive of compensated advanced chronic liver disease. REFERENCE: Society of Radiologists in Ultrasound Liver Stiffness Thresholds (2020): LIVER STIFFNESS THRESHOLDS: *Shear wave velocity less than 1.3 m/s (Liver Stiffness equal or less than 5 kPa): High probability of being normal. *Shear wave velocity less than 1.7 m/s (Liver Stiffness less than 9 kPa): In the absence of other known clinical signs, rules out compensated advanced chronic liver disease. *Shear wave velocity between 1.7-2.1 m/s (Liver Stiffness 9-13 kPa): Suggestive of compensated advanced chronic liver disease but need further test for confirmation. *Shear wave velocity between 2.1-2.4 m/s (Liver Stiffness 13-17 kPa): Rules in compensated advanced chronic liver disease. *Shear wave velocity greater than 2.4 m/s (Liver Stiffness over 17 kPa): Suggestive of clinically significant portal hypertension. QUALITY OF DATA SET: *IQR/Median value equal or less than 0.15 implies a quality data set. *IQR/Median value over 0.15 implies a poor quality data set. SIGNIFICANT CHANGE FROM PRIOR EXAM: Significant change if liver stiffness measurement is 10% or greater from prior exam. OTHER CONSIDERATIONS: The stage of liver fibrosis may be overestimated in the setting of acute hepatitis, liver inflammation, elevated liver function tests, hepatic vascular congestion, obstructive cholestasis, non-fasting state, and infiltrative diseases such as amyloidosis and lymphoma. In some patients with NAFLD, the liver stiffness thresholds for compensated advanced chronic liver disease may be lower. In causes other than viral hepatitis and NAFLD, liver stiffness thresholds are not well established. Electronically signed by: Dominic Garnica MD 04/22/2025 10:02 AM EDT
== END 2025-04-22 09:25 | disposition home or self-care (01) ==
LOC: HO.US 09:24
DX: R74.8 Abnormal levels of other serum enzymes (principal)
CPT/HCPCS: 76705; 76981

== ENCOUNTER → 2025-04-22 09:25 | Outpatient (BNV) | payer MEDICARE, SELFPAY | PROVIDERS: Visit Provider Radiology Diagnostic Radiology | DX: K76.0 Fatty (change of) liver, not elsewhere classified (principal) | CPT/HCPCS: 76705 ==

== ENCOUNTER 2025-04-26 08:20 | Outpatient (REF) | payer MEDICARE, SELFPAY ==
--- OUTSIDE RECORDS SUMMARY | 2025-04-26 08:27 | XMS_ITS | Clinical Summary ---
Author Organization [address] [place] [address] Address [address] [place] [address] Phone Care Team Providers Care Marriage Counselor Name Role Phone Eleno Mathias Hi DON Primary Care Provider Social History Tobacco Use Types Packs/Day Years Used Date Smoking Tobacco: Never Assessed Comments Unknown Sex and Gender Information Value Date Recorded Sex Assigned at Not on file Legal Sex Female 9:08 AM EDT Gender Identity Not on file Sexual Orientation Not on file Plan of Treatment Upcoming Encounters Date Type Department Care Team ([facility] Contact Info) Description 06/30/2025 9:15 AM EDT Consult Orthopedic Surgery - [place] [address] [address] Nick Carcamo, DPM [address] [address] Health Maintenance Due Date Last Done Comments Breast Cancer Screening 1955 Diabetes: Annual GFR (Glomer ular Filtration Rate) 1954 Diabetes: Annual Foot Exam 1964 Diabetes: Annual Retina Eye Exam 1964 DTaP,Tdap,and Td Vaccines (1 - Tdap) 1973 Pneumococcal Vaccine: 50+ Ye ars (1 of 2 - PCV) 1973 Zoster Vaccines (1 of 2) 2004 COVID-19 Vaccine (1 - 2023-2 5 season) 2024 Depression Screening 10/07/2024 Cholesterol Screening (Lipid Panel) 04/23/2025 Colorectal Cancer Screening: Colonoscopy 04/23/2025 Diabetes: Annual Urine Albumin-Creatinine Ratio (uACR) 04/23/2025 Diabetes: Blood Sugar Contro l Test (HGBA1C) 04/23/2025 Falls Risk Assessment 04/23/2025 Hepatitis C Screening 04/23/2025 Osteoporosis Screening (Bone Density Screening) 04/23/2025 Social Influencers of Health Screening 04/23/2025 Influenza Vaccine (#1) 2025 RSV Immunization Adult Patie nts (1 - 1-dose 75+ series) 2029 HIB Vaccines Aged Out No longer eligi ble based on patient's age to complete this topic HPV Vaccines Aged Out No longer eligi ble based on patient's age to complete this topic Hepatitis A Vaccines Aged Out No long er eligible based on patient's age to complete this topic Hepatitis B Vaccines Aged Out No long er eligible based on patient's age to complete this topic IPV Vaccines Aged Out No longer eligi ble based on patient's age to complete this topic MMR Vaccines Aged Out No longer eligi ble based on patient's age to complete this topic Meningococcal ACWY Vaccine Aged Out N o longer eligible based on patient's age to complete this topic Meningococcal B Vaccine Aged Out No l onger eligible based on patient's age to complete this topic RSV Immunization Patients Un earnest 20 months Aged Out No longer eligible b ased on patient's age to complete this topic Varicella Vaccines Aged Out No longer eligible based on patient's age to complete this topic [place] [address] [address] [facility] [id number] Care Teams Marriage Counselor Relationship Specialty Start Date End Date Eleno Mathias FNP [address] [place] [address] [place] [id number] PCP - General Family Medicine 04/23/25
--- OUTSIDE RECORDS SUMMARY | 2025-04-26 08:27 | XMS_ITS | Clinical Summary ---
Author Organization [facility] Address [address] [facility] [place] [address] Phone Care Team Providers Care Art Handler Name Role Phone Moses Mims MD Primary Care Provider [phone] Allergies No known active allergies Medications No known medications Active Problems Problem Noted Date Diagnosed Date Type 2 diabetes mellitus 07/13/2008 Overview (11/27/2014): Diabetes mellitus type 2 Hypertensive disorder 07/13/2008 Overview (11/27/2014): Hypertensive disorder Rheumatoid arthritis 07/13/2008 Overview (11/27/2014): Rheumatoid arthritis Hyperlipidemia 07/13/2008 Overview (11/27/2014): Hyperlipidemia Immunizations Immunization Administration Dates Next Due Influenza, Unspecified Formulation 07/13/2008 Family History Medical History Relation Comments Type 2 Diabetes Maternal Grandmother diabetes me llitus type 2 Type 2 Diabetes Mother diabetes mellitu s type 2 Type 2 Diabetes Paternal Grandmother diabetes me llitus type 2 Relation Status Comments Maternal Grandmother Mother Paternal Grandmother Social History Tobacco Use Types Packs/Day Years Used Date Smoking Tobacco: Never Smokeless Tobacco: Never Education Answer Date Recorded Are you interested in more education? Not on rosaura e 01/31/2023 Are you concerned about learning? Not on file 01/31/2023 No 01/31/2023 No 01/31/2023 Digital Access Answer Date Recorded No 03/04/2023 No 03/04/2023 No 03/04/2023 Reliable internet access at home? Not on file 03/04/2023 Device with a working camera? Not on file Comments Unknown Sex and Gender Information Value Date Recorded Sex Assigned at Not on file Legal Sex Female 7:38 PM EST Gender Identity Not on file Sexual Orientation Not on file Plan of Treatment Health Maintenance Due Date Last Done Comments Adult Td,Tdap Booster 1954 BLOOD PRESSURE 1954 DEPRESSION SCREENING 1966 PNEUMOCOCCAL VACCINES (50+ years) (1 of 2 - PCV) 1973 COLOGUARD 1999 COLONOSCOPY 1999 COLORECTAL CANCER SCREENING 1999 FIT TEST 1999 FOBT 1999 SIGMOIDOSCOPY 1999 VIRTUAL COLONOSCOPY 1999 ZOSTER VACCINES (1 of 2) 2004 DIABETIC EYE EXAM 11/27/2014 URINE MICROALBUMIN/CREATININE RATIO 03/14/2016 03/14/2015 OSTEOPOROSIS SCREENING INITIAL (ONE-TIME) 2019 HEMOGLOBIN A1C 09/30/2021 03/31/2021, 09/20/2015 LIPID PANEL 03/31/2022 03/31/2021, 09/20/2015 MAMMOGRAM 11/30/2023 11/30/2021, 10/08, 07/03/2019, Additional history exists COVID-19 VACCINE (2023- season) 2024 08/24/2021, 01/14/2021, 12/17/2020 RSV VACCINE (1 - 1-dose 75+ series) 2029 HEPATITIS C SCREENING Completed 03/31/2021 SMOKING STATUS SCREENING (Once After 26 Yrs) Completed 04/25/2022 HEPATITIS A VACCINES Aged Out No long er eligible based on patient's age to complete this topic HIB VACCINES Aged Out No longer eligi ble based on patient's age to complete this topic MENINGOCOCCAL VACCINES (ACWY) Aged Out No longer eligible based on patient's age to complete this topic MENINGOCOCCAL VACCINES (B) Aged Out N o longer eligible based on patient's age to complete this topic Medical Devices Not on file Insurance [facility] ONE CARE MEDICARE REPLACEMENT Care Teams Art Handler Relationship Specialty Start Date End Date Moses Mims MD [address] [place] [address] [address] Gonzalez [phone] PCP - General Family Medicine 01/26/22 Additional Source Comments The information contained in this document represents components of the legal health record. It is not the complete legal health record.[facility]
--- OUTSIDE RECORDS SUMMARY | 2025-04-26 08:28 | XMS_ITS | Clinical Summary ---
Author Organization [facility] Address [address] [facility] [address] [place] [address] Care Team Providers Care Health Information Director Name Role Phone Moses Mims MD Primary Care Provider [phone] Belem Shelby MD Unavailable [phone] Allergies Active Allergy Reactions Criticality Noted Date Comments Celecoxib Rash Low 11/06/2022 Medications amLODIPine (Norvasc) 5 mg tablet Take 5 mg by mouth in the morning. 01/18/2022 Active aspirin 81 mg EC tablet Take 81 mg by mouth in the morning. 03/19/2022 Active atorvastatin (Lipitor) 40 mg tablet Take 40 mg by mouth if needed each day. 04/04/2022 Active cyanocobalamin (Vitamin B-12) 500 mcg tablet Take 500 mcg by mouth in the morning. 04/29/2022 Active EnbreL 50 mg/mL (1 mL) injection Inject under the skin 1 (one) time per week. 04/03/2022 Active gabapentin (Neurontin) 300 mg capsule Take 300 mg by mouth if needed. 03/01/2022 Active metFORMIN (Glucophage) 500 mg tablet Take 500 mg by mouth in the morning and at bedtime. 05/17/2022 Active multivitamin tablet Take 1 tablet by mouth in the morning. Active omeprazole (PriLOSEC) [address] capsule Take 20 mg by mouth in the morning. 05/10/2022 Active acetaminophen (Tylenol 8 Hour) 650 mg ER tablet Take 650 mg by mouth if needed. Active alendronate (Fosamax) 70 mg tablet Take 70 mg by mouth 1 (one) time per week. 07/03/2023 Active cholecalciferol (Vitamin D-3) 50 MCG (1999 UT) tablet Take 50 mcg by mouth once daily. 06/27/2023 Active folic acid (Folvite) 1 mg tablet Take 1 mg by mouth once daily. 06/05/2023 Active lisinopril 10 mg tablet Take 10 mg by mouth once daily. 06/05/2023 Active methotrexate 2.5 mg tablet Take 15 mg by mouth 1 (one) time per week 07/03/2023 Active Social History Tobacco Use Types Packs/Day Years Used Date Smoking Tobacco: Former Cigarettes 3 20 1 966 - 1986 Smokeless Tobacco: Never Tobacco Cessation:Counseling Given: Not Answered Alcohol Use Standard Drinks/Week Comments Not Currently 0 (1 standard drink = 0.6 oz pur e alcohol) Comments No Sex and Gender Information Value Date Recorded Sex Assigned at Not on file Legal Sex Female 11:51 PM EST Gender Identity Not on file Sexual Orientation Not on file Last Filed Vital Signs Vital Sign Reading Time Taken Comments Blood Pressure 152/72 08/15/2023 11:25 AM EST pt and md aware pcp will be notified Pulse 79 08/15/2023 11:25 AM EST Temperature 36.2 C (97.2 F) 08/15/2023 11:25 AM EST Respiratory Rate 18 08/15/2023 11:2 5 AM EST Oxygen Saturation 100% 08/15/2023 11: 25 AM EST Inhaled Oxygen Concentration - - Weight 77.3 kg (170 lb 6.4 oz) 08/15/2023 11:25 AM EST Height 161.2 cm (5' 3.47 ) 05/31/2022 1 1:06 AM EDT Body Mass Index 29.74 05/31/2022 11:06 AM EDT Plan of Treatment Health Maintenance Due Date Last Done Comments CT Colonography 1954 Colonoscopy 1954 Colorectal Cancer Screening 1954 FIT-DNA 1954 FIT 1954 FOBT 1954 Sigmoidoscopy 1954 Diabetes: Foot Exam 1964 Diabetes: Retinopathy Screening 1964 Pneumococcal Vaccine: 50+ Years (1 of 1 - PCV) 2004 Zoster Vaccines (1 of 2) 2004 Medicare Annual Wellness (AWV) 07/07/2019 Diabetes: Urine Protein Screening 09/26/2021 09/26/2020 Diabetes: Hemoglobin A1C 09/30/2021 03/31/2021, 09/07 Lipid Panel 03/31/2022 03/31/2021, 03/31/2021 Mammogram 11/30/2023 11/30/2021, 11/08, 11/04/2020, Additional history exists COVID-19 Vaccine ( season) 2024 12/25/2022, 08/24/2021, 01/14/2021, Additional history exists Depression Screening 10/07/2024 Influenza Vaccine (#1) 2025 , 08/15/2021, 07/24/2017, Additional history exists DTaP/Tdap/Td Vaccines (3 - Td or Tdap) 04/26/2032 04/26/2022, 02/02/2010, 02/02/2010 Hepatitis C Screening Completed 03/31/2021 Bone Density Scan Completed 07/25/2022, , 11/28/2020 HIB Vaccines Aged Out No longer eligi [...] patient's age to complete this topic Meningococcal Vaccine Aged Out No elvin anam eligible based on patient's age to complete this topic Rotavirus Vaccines Aged Out No longer eligible based on patient's age to complete this topic Procedures Procedure Name Priority Date/Time Associated Diagnosis Comments BD - BONE DENSITOMETRY Routine 11/28/2020 4:09 AM EST from Last 3 Months or Most Recently Relevant to Health Maintenance Results * BD - BONE DENSITOMETRY (11/28/2020 4:09 AM EST) Anatomical Region Laterality Modality Radiographic Katelin ging 11/28/2020 4:09 AM EST Narrative 11/28/2020 10:30 AM EST Examination: Bone Densitometry Indication: Osteopenia Exclusion: None Technique: A Hologic bone density study was performed on a Horizon C unit at [facility] Comparison: Baseline bone mineral density study Findings: AP L Spine L1-L4: BMD: 1.889 g/sq cm T-Score: -1.4 Z-score 0.4 Left Femur Neck: BMD: 0.656 g/sq cm T-Score: -1.7 Z-score -0.1 Left Femur Total: BMD: 0.768 g/sq cm ~T-Score: -1.4 Z-score -0.1 World Health Organization (WHO) criteria: Normal: T-score at or above -1 Standard Deviation Osteopenia: T-score between -1 and -2.5 Standard Deviations Osteoporosis: T-score at or below -2.5 Standard~Deviations NOF guidelines recommend the initiation of therapy to reduce fracture risk in women with BMD: T-score below -2 SD T-score of -1.5 SD and below with risk factors IMPRESSION: Osteopenia with a T score of -1.7 was determined from the evaluation of the Left femoral neck. Dictated: 11/28/20 1026 ~ REPORT SIGNATURE ON FILE 11/28/2020 Signed By: KONRAD SOLIS MD Procedure Note Konrad Solis - 01/01/2022 Examination: Bone Densitometry Indication: Osteopenia Exclusion: None Technique: A Hologic bone density study was performed on a Horizon C unitat [facility] Comparison: Baseline bone mineral density study Findings: AP L Spine L1-L4: BMD: 1.889 g/sq cm T-Score: -1.4 Z-score 0.4Left Femur Neck: BMD: 0.656 g/sq cm T-Score: -1.7 Z-score-0.1 Left Femur Total: BMD: 0.768 g/sq cm ~T-Score: -1.4Z-score -0.1 World Health Organization (WHO) criteria: Normal: T-score at or above -1Standard Deviation Osteopenia: T-score between -1 and -2.5 StandardDeviations Osteoporosis: T-score at or below -2.5 Standard~Deviations NOF guidelines recommend the initiation of therapy to reduce fracture riskin women with BMD: T-score below -2 SD T-score of -1.5 SD and below withrisk factors IMPRESSION: Osteopenia with a T score of -1.7 was determined from theevaluation of the Left femoral neck. Dictated: 11/28/20 1026 ~ REPORT SIGNATURE ON FILE 11/28/2020 Signed By:KONRAD SOLIS MD us Conversions Default Provider IMAmado DXA PROCEDUR ES Final Result from Last 3 Months or Most Recently Relevant to [place] [address] [facility] CARE PLAN MEDICAID COMMONHEALTH Care Teams Health Information Director Relationship Specialty Start Date End Date Moses Mims MD PCP - General 11/10/21 Belem Shelby MD [address] [place] [address] 11/10/21
[2025-04-26 09:10] LABS: INTERNATIONAL NORM RATIO 1.0 (0.9-1.1); Prothrombin Time 11.6 SEC (10.9-12.4)
[2025-04-26 09:50] LABS: Alanine Aminotransferase 85 U/L (0-31); Albumin Level 4.0 g/dL (3.5-5.0); Alkaline Phosphatase 76 U/L (39-117); Aspartate Amino Transferase 66 U/L (5-31); Total Protein 7.1 g/dL (6.5-8.0)
[2025-04-26 10:03] LABS: HBS Num1 0.00 mIU/mL (0-7.99); HBc Num1 0.06 S/CO (0.00-0.79); HBsAGNum1 0.31 S/CO (0.00-0.99); Hepatitis A Antibody IgM 0.12 Index (0-0.79); Hepatitis B Surface Antigen Negative (Negative); ~HepC Num1 0.06 S/CO (0.00-0.79); ~Hepatitis A Antibody IgM Nonreactive (Nonreactive); ~Hepatitis B Surface Antibody NONREACTIVE (Nonreactive); ~Hepatitis C Antibody Nonreactive (Nonreactive)
== END 2025-04-26 08:21 | disposition home or self-care (01) ==
LOC: HO.LAB 08:20
DX: R74.8 Abnormal levels of other serum enzymes (principal)
CPT/HCPCS: 36415; 80076; 85610; 86704; 86706; 86709; 86803; 87340

== ENCOUNTER 2025-04-29 09:34 | Outpatient (AMB) | payer OTHER, SELFPAY ==
--- NOTE | 2025-04-29 10:03 | A.OFFVIS_ITS ---
Intake Visit Reasons: urinary incontinence Intake Note: New patient presents today for initial visit for urinary incontinence Urology Medication:Vitamin B12 Blood Thinner:Aspirin Antibiotic Allergies:None PVR:7ml Allergies celecoxib (From Celebrex) Allergy (Intermediate, Verified 04/29/25 10:04) Rash HPI Comments Details: 04/29/2025--Kendal is a 70-year-old female who is here as a new patient for urinary incontinence History of Present Illness - The patient is a 70-year-old female presenting with urinary incontinence. - The urinary incontinence has been ongoing for a while and is not a new issue. - The patient has been trying to manage the condition with advice from her doctor. - The patient is diabetic and has been on metformin for about one year. - She is also on lisinopril and hydrochlorothiazide, which may impact bladder function. - A recent ultrasound at [facility] showed a small cyst in the right kidney, which is not a concern. Results - Ultrasound at [facility]: Small cyst in the right kidney, no concern noted. Plan - Order an ultrasound of the kidneys and bladder to further evaluate the urinary incontinence. - Prescribe medication to help relax the bladder and improve urinary control. - Schedule a follow-up appointment in 10 to 12 weeks to assess the effectiveness of the treatment and review ultrasound results. - Advise the patient to contact the nurse if there are issues with medication coverage or side effects. [facility] Medical History Rheumatoid arthritis HTN (hypertension) HLD (hyperlipidemia) Diabetes mellitus Surgical History History of hysterectomy History of hernia repair History of cholecystectomy History of 3 sections Social History Housing: House Alcohol intake: never Patient Tobacco Use Status: Never used Tobacco e-Cigarette/Vaping Use: Never Used Second Hand Smoke Exposure: No service: No Current occupational status: retired Cognitive needs: No Hearing needs: No Vision needs: Yes (Glasses) Review of Systems Const All systems reviewed & are unremarkable except as noted in HPI and below Reports no additional complaints Eyes Reports no additional complaints ENT Reports no additional complaints Card Reports no additional complaints Resp Reports no additional complaints GI Reports no additional complaints Reports as per HPI Musc Reports no additional complaints Skin/Breast Reports system reviewed and no additional complaints, except as documented Neuro Reports no additional complaints Psych Reports no additional complaints Endo Reports no additional complaints Lj/Lymph Reports no additional complaints Aller/Immun Reports no additional complaints Physical Exam Const General: cooperative, healthy appearing and no acute distress Orientation/consciousness: patient oriented x3 HEENT Head: Yes normal to inspection, Yes normocephalic and Yes atraumatic Eyes Conjunctivae: conjunctivae normal Neck Neck: Yes normal visual inspection and Yes trachea midline Chest Chest palpation & inspection: normal inspection of the chest Resp Effort & Inspection: normal respiratory effort GI Inspection: Yes normal to inspection Palpation (GI): Soft to palpation Neuro General: patient oriented x3 Psych Appearance: grossly normal Office Procedures Post Void Residual Post Residual Void Post Void Residual (PVR): 7 [id number] Void Residual by ultrasound Results AMB Urinalysis, Automated UA Leukoctes 0 Ramakrishna/uL Last Edit by Etta Arriaza on 04/29/25 16:04 UA Nitrite Negative Last Edit by Etta Arriaza on 04/29/25 16:04 UA Urobilinogen 3.5 mg/dL Last Edit by Etta Arriaza on 04/29/25 16:04 UA Protein 0 mg/dL Last Edit by Etta Arriaza on 04/29/25 16:04 UA pH 5.0 Last Edit by Etta Arriaza on 04/29/25 16:04 UA Blood 0 Alonzo/uL Last Edit by Etta Arriaza on 04/29/25 16:04 UA Specific Kinde 1.015 Last Edit by Etta Arriaza on 04/29/25 16:04 UA Ketone Negative Last Edit by Etta Arriaza on 04/29/25 16:04 UA Bilirubin 0 mg/dL Last Edit by Etta Arriaza on 04/29/25 16:04 UA Glucose 0 mg/dL Last Edit by Etta Arriaza on 04/29/25 16:04 Assessment & Plan Assessment & Plan (1) Urinary frequency: Code(s): R35.0 - Frequency of micturition Category: Medical Orders: Orders US retroperitoneal comp Today R35.0 - Frequency of micturition AMB Urinalysis Automated Today Z13.9 - Encounter for screening, unspecified Medications: New vibegron (Gemtesa) 75 mg PO DAILY 30 tabs 5RF Coding Level of Care Code New Pt Level 4 (61168) Diagnoses Urinary frequency R35.0 CPT Codes Post Residual Void - PVR CPT Code: 62720-[id number] Void Residual by ultrasound ([id number])
--- OUTSIDE RECORDS SUMMARY | 2025-04-29 10:13 | XMS_ITS | Clinical Summary ---
Author Organization [address] [place] [address] Address [address] [place] [address] Phone Care Team Providers Care Laborer Livestock Name Role Phone Eleno Mathias Hi DON [...] Upcoming Encounters Date Type Department Care Team ([facility] Contact Info) Description 06/30/2025 9:15 AM EDT Consult Orthopedic Surgery - [place] [address] [address] Nick Carcamo, DPM [address] [address] Health Maintenance Due Date Last Done Comments [...] patient's age to complete this topic [place] [address] [place] [address] [facility] [id number] Care Teams Laborer Livestock Relationship Specialty Start Date End Date Eleno Mathias FNP [address] [place] [address] [place] [id number] PCP - General Family Medicine 04/23/25
--- OUTSIDE RECORDS SUMMARY | 2025-04-29 10:13 | XMS_ITS | Clinical Summary ---
Author Organization [facility] Address [address] [place] [phone] Phone Care Team Providers Care Bulk Tank Car Unloader Name Role Phone Moses Mims MD Primary Care Provider [phone] Allergies No known active allergies Medications No [...] topic Medical Devices Not on file Insurance [facility] ONE CARE MEDICARE REPLACEMENT Care Teams Bulk Tank Car Unloader Relationship Specialty Start Date End Date Moses Mims MD [address] [place] [address] [address] [address] PCP - General Family Medicine 01/26/22 Additional Source Comments The information contained in this document represents components of the legal health record. It is not the complete legal health record.[facility]
--- OUTSIDE RECORDS SUMMARY | 2025-04-29 10:13 | XMS_ITS | Clinical Summary ---
Author Organization [facility] Address [address] [facility] [address] [place] [address] Care Team Providers Care Sonar Watchstander Name Role Phone Moses Mims MD Primary Care Provider [phone] Belem Shelby MD Unavailable [phone] Allergies Active Allergy Reactions Criticality Noted [...] performed on a Horizon C unit at [facility] Comparison: Baseline bone mineral density study Findings: [...] was performed on [facility] Horizon C [facility] [address] Comparison: Baseline bone mineral density study Findings: [...] Relevant to [place] [address] [facility] CARE PLAN MEDICAID COMMONHEALTH Care Teams Sonar Watchstander Relationship Specialty Start Date End Date Moses Mims MD PCP - General 11/10/21 Belem Shelby MD [address] [place] [address] 11/10/21
== END 2025-04-29 11:00 | disposition home or self-care (01) ==
LOC: HO.HUSH 09:35
PROVIDERS: Visit Provider Urology
DX: Z13.9 Encounter for screening, unspecified (principal)

== ENCOUNTER → 2025-04-29 09:34 | Outpatient (BNVA) | payer MEDICARE, SELFPAY | PROVIDERS: Visit Provider Urology | DX: N39.46 Mixed incontinence (principal); R35.0 Frequency of micturition | CPT/HCPCS: 51798; 81003; 99202 ==

== ENCOUNTER 2025-07-01 10:28 | Outpatient (REF) | payer MEDICARE, SELFPAY ==
[2025-07-01 10:52] LABS: MANUAL DIFF FLAG NO
[2025-07-01 11:20] LABS: Hematocrit 40.5 % (37.0-47.0); Hemoglobin 13.7 g/dl (12.0-16.0); Imm Gran Abs Auto 0.09 X10*3/uL (0.00-0.03); Imm Gran Pct Auto 1.0 % (0.0-0.4); Lymphocytes Absolute Auto 1.4 X10*3/uL (1.2-4.9); Mean Corpuscular HGB Conc 33.8 g/dl (31.0-35.0); Mean Corpuscular Hemoglobin 31.8 pg (27.0-33.0); Mean Corpuscular Volume 94.0 fL (80.0-98.0); NRBC Abs Auto 0.000 X10*3/uL (0.0-0.012); NRBC Pct Auto 0.0 /100WBC (0.0-0.2); Platelet Count 325 X10*3/uL (160-400); Red Blood Count 4.31 X10*6/uL (4.20-5.50); White Blood Count 9.0 X10*3/uL (4.8-10.8)
[2025-07-01 11:46] LABS: Appearance Urine Clear; Glucose Urine UA Negative (Negative); PH 5.5 (5.0-9.0); Specific Gravity - Urine 1.015 (1.005-1.025); UMIC TRIGGER UACC YES
[2025-07-01 12:35] LABS: Alanine Aminotransferase 91 U/L (0-31); Albumin Level 4.1 g/dL (3.5-5.0); Alkaline Phosphatase 67 U/L (39-117); Anion Gap 14 (12-20); Aspartate Amino Transferase 72 U/L (5-31); Blood Urea Nitrogen 17 mg/dL (9-16); Calcium 9.8 mg/dL (8.4-10.2); Carbon Dioxide 28 mmol/L (22-29); Chloride 101 mmol/L (96-108); Cholesterol 309 mg/dL (<200); Estimated Glomerular Filt Rate > 60; HDL Cholesterol 32 mg/dL (>40); Potassium 4.1 mmol/L (3.3-5.1); Sodium 139 mmol/L (135-145); Total Protein 7.0 g/dL (6.5-8.0); Triglycerides 370 mg/dL (<150)
--- OUTSIDE RECORDS SUMMARY | 2025-07-01 13:16 | XMS_ITS | Clinical Summary ---
Author Organization [address] [facility] Address [address] [place] [address] Phone Care Team Providers Care Food And Beverage Intern Name Role Phone StewIrmaElenomaricruz DON Primary Care Provider Allergies Active Allergy Reactions Criticality Noted Date Comments Celecoxib Rash 06/08/2025 Medications alendronate (FOSAMAX) 70 mg tablet TAKE 1TABLET BY MOUTH EVERY 7 DAYS DIRECTED 5 Active cholecalciferol (VITAMIN D-3) 50 mcg (2,000 unit) tablet Take 1 tablet (2,000 Units total) by mouth 1 (one) time each day. 5 Active EnbreL 50 mg/mL (1 mL) injection syringe 5 Active fluocinolone acetonide oiL 0.01 % drops PLACE 5 DROPS INTO THE LEFT EAR TWICE A DAY FOR 7 DAYS 5 Active folic acid (FOLVITE) 1 mg tablet 5 Active gabapentin (NEURONTIN) 300 mg capsule 5 Active lisinopriL (PRINIVIL,ZESTRIL) 10 mg tablet Take 1 tablet (10 mg total) by mouth 1 (one) time each day. 5 Active metFORMIN (GLUCOPHAGE) 500 mg tablet Take 1 tablet (500 mg total) by mouth 2 (two) times a day. 5 Active methotrexate 2.5 mg tablet TAKE 6 TABLETS BY MOUTH 1 TIME WEEKLY 5 Active Klayesta 100,000 unit/gram powder apply to affected area three times daily 4 Active omeprazole (PriLOSEC) [address] capsule TAKE 1 CAPSULE BY MOUTH DAILY 1 HOUR BEFORE BREAKFAST 5 Active lidocaine (LIDODERM) 5 % patchIndications:D iabetic mononeuropathy simplex ([facility] V24, [facility] V28) Apply 1 patch topically 1 (one) time each day. Remove & discard patch within 12 hours or as directed by . 30 each 2 5 09/06/20 25 Active Encounters Date Type Department Care Team Description 06/09/2025 Telephone Orthopedic Surgery [place] [address] [address] Nick Carcamo DPM 06/08/2025 10:45 AM EDT Consult Orthopedic [place] [address] [address] Nick Carcamo DPM Diabetic mononeuropathy simplex ([facility] [place] [place] V24, [facility] V28) (Primary Dx); Encounter for diabetic foot exam ([facility] [place] [place] V24, [facility] V28); Callus of foot; Dermatophytosis of nail; Pain in toe of right foot; Pain in toe of left foot from Last 3 Months Social History Tobacco Use Types Packs/Day Years Used Date Smoking Tobacco: Never Assessed Comments Unknown Sex and Gender Information Value Date Recorded Sex Assigned at Not on file Legal Sex Female 9:08 AM EDT Gender Identity Not on file Sexual Orientation Not on file Last Filed Vital Signs Vital Sign Reading Time Taken Comments Blood Pressure - - Pulse - - Temperature - - Respiratory Rate - - Oxygen Saturation - - Inhaled Oxygen Concentration - - Weight 77.6 kg (171 lb) 06/08/2025 11:22 AM EDT Height 157.5 cm (5' 2 ) 06/08/2025 11:22 AM EDT Body Mass Index 31.28 06/08/2025 11:22 AM EDT Plan of Treatment Upcoming Encounters Date Type Department Care Team (Late st Contact Info) Description 08/09/2025 10:15 AM EST Office Visit Orthopedic [facility] [address] [address] Nick Carcamo DPM [address] [place] [address] Health Maintenance Due Date Last Done Comments Diabetes: Annual GFR (Glomerular Filtration Rate) 1954 Diabetes: Annual Foot Exam 1964 Diabetes: Annual Retina Eye Exam 1964 Pneumococcal Vaccine: 50+ Years (1 of 2 - PCV) 1973 Zoster Vaccines (1 of 2) 2004 RSV Immunization Adult Patients (1 - Risk 60-74 years 1-dose series) 2014 Breast Cancer Screening 11/30/2023 11/30/2021 Depression Screening 10/07/2024 Cholesterol Screening (Lipid Panel) 04/23/2025 02/27/2011 Colorectal Cancer Screening: Colonoscopy 04/23/2025 Diabetes: Annual Urine Albumin-Creatinine Ratio (uACR) 04/23/2025 Diabetes: Blood Sugar Control Test (HGBA1C) 04/23/2025 Falls Risk Assessment 04/23/2025 Hepatitis C Screening 04/23/2025 Social Influencers of Health Screening 04/23/2025 COVID-19 Vaccine ( season) 2025 12/25/2022, 08/24/2021, 01/14/2021, Additional history exists Influenza Vaccine (#1) 2025 , 08/15/2021, 08/03/2010, Additional history exists Hypertension/CHF/CAD Annual BMP Blood Test 06/08/2025 DTaP,Tdap,and Td Vaccines (2 - Td or Tdap) 04/26/2032 04/26/2022 Osteoporosis Screening (Bone Density Screening) 07/25/2032 07/25/2022, 07/25/2022 HIB Vaccines Aged Out No longer eligi [...] to complete this topic RSV Immunization Patients Under 20 months Aged Out No longer eligible based on patient's age to complete this topic Varicella Vaccines Aged Out No longer eligible based on patient's age to complete this topic Insurance [facility] [place] [address] Care Teams Food And Beverage Intern Relationship Specialty Start Date End Date Eleno Mathias FNP [address] [place], [place] [id number] PCP - General Family Medicine 04/23/25
--- OUTSIDE RECORDS SUMMARY | 2025-07-01 13:16 | XMS_ITS | Clinical Summary ---
Author Organization [facility] Address [address] [place] [address] Phone Care Team Providers Care Waterproofing Machine Operator Name Role Phone Moess Mims MD Primary Care Provider [phone] Allergies No known active allergies Medications No [...] 11/30/2023 11/30/2021, 10/08, 07/03/2019, Additional history exists INFLUENZA VACCINE (#1) 2025 , 09/25/2016, 08/03/2010, Additional history exists COVID-19 VACCINE (2024- season) 2025 08/24/2021, 01/14/2021, 12/17/2020 RSV VACCINE (1 - [...] topic Medical Devices Not on file Insurance [facility] ONE CARE MEDICARE REPLACEMENT JINA JIMENES [id number] [place] [id number] Care Teams Waterproofing Machine Operator Relationship Specialty Start Date End Date Moses Mims MD [address] [place] [address] [address] AUDELIA Gonzalez [id number] [email or web address] PCP - General Family Medicine 01/26/22 Additional Source Comments The information contained in this document represents components of the legal health record. It is not the complete legal health record.[facility]
--- OUTSIDE RECORDS SUMMARY | 2025-07-01 13:16 | XMS_ITS | Encounter Summary ---
Author Organization [facility] Address [address] [place] [address] Care Team Providers Care Parts Interpreter Name Role Phone Jeff Mathiaslisha DON Primary Care Provider Reason for Visit * Reason Onset Date Comments Medication not covered 06/09/2025 Encounter Details Date Type Department Care Team ([facility] st Contact Info) Description 06/09/2025 Telephone Orthopedic Surgery - [place] [address] [phone] Nick Carcamo, DPM [address] [phone] Social History Tobacco Use Types Packs/Day Years Used Date Smoking Tobacco: Never Assessed Comments Unknown Sex and Gender Information Value Date Recorded Sex Assigned at Not on file Legal Sex Female 9:08 AM EDT Gender Identity Not on file Sexual Orientation Not on file documented as of this encounter Progress Notes * Krista Lyon - 06/15/2025 10:58 AM EDT Outreach made to Pharmacy- They are faxing the PA request. Pending * Krista Lyon - 06/09/2025 3:07 PM EDT Pending PA request from insurance. I will contact pharmacy by this week * iLsa Ramirez - 06/09/2025 11:04 AM EDT Patient is calling stating that the Lidocaine Patches are not covered by her Insurance. Can a PA bedone ,or is there an alternative Medication. Please advise. She can be reached @ [phone] with any questions. Thanks. documented in this encounter Plan of Treatment Upcoming Encounters Date Type Department Care Team ([facility] st Contact Info) Description 08/09/2025 10:15 AM EST Office Visit Orthopedic Surgery - [place] [address] [phone] Nick Carcamo DPJed [address] [phone] documented as of this encounter Visit Diagnoses Not on filedocumented in this encounter Care Teams Parts Interpreter Relationship Specialty Start Date End Date Eleno Mathias FNP [address] [place] [address] PCP - General Family Medicine 04/23/25 documented as of this encounter
[2025-07-01 13:34] LABS: Free T4 (Free Thyroxine) 1.23 ng/dL (0.71-1.85)
== END 2025-07-01 10:29 | disposition home or self-care (01) ==
LOC: HO.US 10:28
PROVIDERS: Visit Provider Urology
DX: R35.0 Frequency of micturition (principal); R74.8 Abnormal levels of other serum enzymes; E11.9 Type 2 diabetes mellitus without complications; E78.5 Hyperlipidemia, unspecified; I10 Essential (primary) hypertension
CPT/HCPCS: 36415; 76770; 80053; 80061; 81001; 84439; 84443; 85025

== ENCOUNTER → 2025-07-01 10:58 | Outpatient (BNV) | payer MEDICARE, SELFPAY | PROVIDERS: Visit Provider Radiology Diagnostic Radiology | DX: N20.0 Calculus of kidney (principal); N28.1 Cyst of kidney, acquired | CPT/HCPCS: 76770 ==

== ENCOUNTER 2025-07-06 15:28 | Outpatient (AMB) | payer OTHER, SELFPAY ==
[2025-07-06 15:36] VITALS: BP 116/58; PULSE 94; RESP 18; TEMP 36.3; O2SAT 99; BMI 30.7
--- NOTE | 2025-07-06 15:36 | MHC.PC.OV ---
Vital Signs 07/06/25 15:36 Height 5 ft 2.99 in Weight 173 lb 4 oz BMI 30.7 BP 116/58 L Blood Pressure Location Lt brachial Position Sitting Respiration 18 Pulse 94 Pulse Source Pulse Oximeter Temp 97.3 F Temp Source Temporal Artery Scan Pulse Oximetry (%) 99 Oxygen Delivery Method Room Air Intake Visit Reasons: follow up Category Specialist Required: No Accompanied by: Self / Same As Patient Allergies celecoxib (From Celebrex) Allergy (Intermediate, Verified 07/06/25 15:56) Rash Medication List - Last Reconciled 07/06/25 by BITA Monreal alendronate 70 mg PO QWEEK 3 months aspirin 81 mg PO DAILY atorvastatin 40 mg PO DAILY Held on 04/05/25. Instructions: Doctor's Order [blood pressure machine As directed check blood two times a day, in the mornings and in the evenings] blood sugar diagnostic (WriteOnTouch Verio test strips) As directed check blood sugar two times a day blood-glucose meter (OneTouch Verio Reflect Meter) As directed check blood two times a day cholecalciferol (vitamin D3) 50 mcg PO DAILY cyanocobalamin (vitamin B-12) 500 mcg PO DAILY etanercept (Enbrel) 50 mg subcut QWEEK folic acid 1 mg PO DAILY lancets As directed check blood sugar two time a day lisinopril-hydrochlorothiazide 10-12.5 mg 1 tab PO DAILY metformin 500 mg PO BID 90 days methotrexate sodium 15 mg PO QWEEK omeprazole 20 mg PO DAILY Tobacco use date assessed: 07/06/25 Fall risk assessment: No Falls in past year Last assessed Fall Risk: 07/06/25 Dental Screening Dental Screen Date: 07/06/25 Did you have a dental visit in the last 12 months?: No Did you have a dental problem in the last 6 months where you did not have access to dental care?: No Was dental information given to patient?: No HPI follow up HPI Details The patient is a 70-year-old female presenting with management of hyperlipidemia, elevated liver enzymes, and type 2 diabetes mellitus, along with evaluation of a recurrent rash. The patient has a history of hyperlipidemia, previously managed with atorvastatin, which was discontinued due to elevated liver enzymes. Her LDL cholesterol was initially low at 59 mg/dL while on atorvastatin, but increased significantly to 203 mg/dL after discontinuation. The patient has not tried other cholesterol medications to her knowledge. The patient has elevated liver enzymes, which were noted to decrease after discontinuation of atorvastatin. There is a plan to monitor liver enzymes with the introduction of rosuvastatin to assess for any recurrence of elevation. The patient has type 2 diabetes mellitus, with a recent fasting glucose of 165 mg/dL and an HbA1c of 7.8%, indicating poor glycemic control. The patient denies any increase in dietary sugar intake. The metformin dosage is to be increased to improve glycemic control. The patient reports a recurrent rash that appears and fades intermittently, described as non-itchy and possibly allergic in nature. No new skin products or medications have been introduced recently. The rash was observed to fade during the examination, supporting the hypothesis of an allergic reaction. [facility] Medical History Rheumatoid arthritis HTN (hypertension) HLD (hyperlipidemia) Diabetes mellitus Surgical History History of hysterectomy History of hernia repair History of cholecystectomy History of 3 sections Social History Housing: House Alcohol intake: never Patient Tobacco Use Status: Never used Tobacco e-Cigarette/Vaping Use: Never Used Second Hand Smoke Exposure: No service: No Current occupational status: retired Cognitive needs: No Hearing needs: No Vision needs: Yes (Glasses) Questionnaire Thrive Questionnaire Date Thrive assessed: 04/05/25 I am a: Patient What is your living situation today?: I have a steady place to live Within the past 12 months, did the food you bought not last and you didn't have the money to get more?: Sometimes True Within the past 12 months, did you worry whether your food would run out before you got money to buy more?: Sometimes True Do you have trouble paying for medicines?: No Do you have trouble getting transportation to medical appointments?: No Do you have trouble paying your heating and electricity bill?: Yes Do you have trouble taking care of your child, family member or friend?: No Do you have trouble with day-to-day activities such as bathing, preparing meals, shopping, managing finances, etc.?: No Are you currently unemployed and looking for a job?: No Are you interested in more education?: No Currently or been in a relationship where the following occur: I choose not to answer THRIVE Score: 3 VARSHA-7 AMB Questionnaire VARSHA-7 Date VARSHA - 7 assessed: 04/05/25 Source: Developed by Drs. Dominic Morin, Georgia Bentley, Shravan Meadows and colleagues, with an educational helen from [employer]. Review of Systems Const Denies body aches, Denies chills, Denies fever(s), Denies headache(s) and Denies poor appetite Eyes Reports no additional complaints ENT Denies dysphagia, Denies dizziness, Denies headache(s) and Denies odynophagia Card Denies chest pain, Denies syncope, Denies edema, Denies irregular heart rhythm, Denies lightheadedness and Denies dyspnea Resp Denies cough and Denies dyspnea GI Denies abdominal pain, Denies constipation, Denies dysphagia, Denies diarrhea, Denies nausea, Denies odynophagia and Denies vomiting Reports no additional complaints Musc Reports no additional complaints and Denies abnormal gait Skin/Breast Reports other (Redness to chest area that comes and goes) Neuro Denies abnormal gait, Denies dizziness, Denies syncope and Denies headache(s) Psych Reports no additional complaints Physical exam (Primary Care) Vital Signs: Last Vital Signs Temp 97.3 F 07/06/25 15:36 Pulse 94 07/06/25 15:36 Resp 18 07/06/25 15:36 BP 116/58 L 07/06/25 15:36 Pulse Ox 99 07/06/25 15:36 Oxygen Delivery Method Room Air 07/06/25 15:36 BMI result Body Mass Index 30.7 Tobacco/Smoking Status: Tobacco use Status Tobacco use date assessed 07/06/25 07/06/25 15:38 Patient Tobacco Use Status Never used Tobacco 07/06/25 15:38 e-Cigarette/Vaping Use Never Used 07/06/25 15:38 Thrive Assessment: Date of Thrive Assessment Date Thrive assessed 04/05/25 07/06/25 15:38 Currently or been in a relationship where the following occur: I choose not to answer Const General: cooperative, healthy appearing, comfortable and no acute distress Orientation/consciousness: patient oriented x3 HENMT Head: Yes normocephalic Ears: hearing grossly normal bilaterally General nose exam: Normal external nose present Eyes General: appearance normal, both eyes and all related structures Conjunctivae: conjunctivae normal Neck Neck: Yes full ROM and Yes no lymphadenopathy Resp Effort & Inspection: normal respiratory effort Auscultation: clear to auscultation bilaterally, no crackles, no rales, no rhonchi and no wheezes Cardio Rate: regular rate Rhythm: regular rhythm GI Palpation (GI): Soft to palpation and nontender Auscultation: normal bowel sounds General: Yes no CVA tenderness Back/Spine/Pelvis Back: no CVA tenderness Skin General skin exam: erythema (Intermittent chest area) Neuro General: patient oriented x3 Gait exam (Neuro): Normal gait present Extrem General: Yes normal to inspection, Yes full ROM and No edema Psych Affect: normal affect Attitude: cooperative Insight: Good insight present (Psych) Judgement: Good judgement present (Psych) Results Reviewed Results Reviewed: Laboratory Last Values Hgb A1c (Clinic) 7.8 % (4.0-6.0) H 07/06/25 15:58 Laboratory Tests 07/01/25 07/01/25 10:47 10:50 WBC 9.0 RBC 4.31 Hgb 13.7 Hct 40.5 MCV 94.0 MCH 31.8 MCHC 33.8 RDW 13.5 Plt Count 325 MPV 10.2 Sodium 139 Potassium 4.1 Chloride 101 Carbon Dioxide 28 Anion Gap 14 BUN 17 H Creatinine 0.85 Estimated GFR > 60 Fasting Glucose 165 H Calcium 9.8 Total Bilirubin 1.2 H AST 72 H ALT 91 H Alkaline Phosphatase 67 Albumin 4.1 Triglycerides 370 H Cholesterol 309 H LDL Cholesterol, Calc 203 H HDL Cholesterol 32 L TSH 4.24 H Free T4 1.23 Urine Color Dark Yellow Urine Appearance Clear Urine pH 5.5 Ur Specific Doole 1.015 Urine Protein Negative Urine Glucose (UA) Negative Urine Ketones Trace Urine Blood Negative Urine Nitrite Negative Ur Leukocyte Esterase Trace H Urine RBC 0-2 Urine WBC 0-5 Ur Squamous Epith Cells 3-5 Urine Bacteria None Seen Hyaline Casts 3-5 Coding Level of Care Code Est Pt Level 4 (87056) Diagnoses Elevated liver enzymes R74.8 Hypertension, unspecified type I10 Hypertension type: unspecified Hyperlipidemia, unspecified hyperlipidemia type E78.5 Hyperlipidemia type: unspecified Type 2 diabetes mellitus without complication, without long-term current use of insulin E11.9 Diabetes mellitus complication status: without complication Diabetes mellitus long term care administrator insulin use: without fpc use Diabetes mellitus type: type 2 Erythema of skin L53.9 Time Spent (min) 41 Assessment & Plan Assessment & Plan (1) Elevated liver enzymes: Code(s): R74.8 - Abnormal levels of other serum enzymes Category: Medical Plan: AST 123, ALT 169, on 03/31/2025 The patient denies abdominal pain. Reports that she does not drink much alcohol or take much Tylenol. Atorvastatin 40 mg was held. Liver panel decreased some, however, the patient cholesterol spike significantly. Triglycerides 370, total cholesterol 309, LDL 203, HDL 32. Liver elostrography is consistent with fatty liver and possible early cirrhosis. The patient was started on a different rosuvsatin 5 mg daily and referred to GI for further evaluation. (2) HTN (hypertension): Code(s): I10 - Essential (primary) hypertension Category: Medical Qualifiers: Hypertension type: unspecified Qualified Code(s): I10 - Essential (primary) hypertension Plan: Blood pressure 116/58-systolic goal less than 130 mm hg Reinforced low-salt diet Continue lisinopril-hydrochlorothiazide 10-12.5 mg 1 tab daily (3) HLD (hyperlipidemia): Code(s): E78.5 - Hyperlipidemia, unspecified Category: Medical Qualifiers: Hyperlipidemia type: unspecified Qualified Code(s): E78.5 - Hyperlipidemia, unspecified Plan: Triglycerides 370, total cholesterol 309, LDL 203, HDL 32. Previous: Triglycerides 151, total cholesterol 142, LDL 59, HDL 32. Patient atorvastatin 40 mg was placed on hold due to elevated liver enzymes. The liver enzymes improved some but as it can see the cholesterol significantly increased. Atorvastatin was discontinued and rosuvastatin 5 mg was started. We will repeat lipid panel in 3 months (4) Diabetes mellitus: Code(s): E11.9 - Type 2 diabetes mellitus without complications Category: Medical Qualifiers: Diabetes mellitus complication status: without complication Diabetes mellitus fpc insulin use: without fpc use Diabetes mellitus type: type 2 Qualified Code(s): E11.9 - Type 2 diabetes mellitus without complications Plan: Fasting glucose 35, A1c 7.8% in office increased from 7.2%, goal is less than 7% Reinforced low sugar/carbohydrate diet and activity as tolerated Metformin increased to 1000 mg b.i.d. We will recheck fasting glucose and A1c in 3 months (5) Erythema of skin: Code(s): L53.9 - Erythematous condition, unspecified Category: Medical Plan: The patient has intermittent erythema to the chest area. Denies itchiness, denies any recent change in of skin products. Unclear, if this is stress related. We will continue to monitor. The redness resolves on its own without intervention, and this isn't has any associated symptoms. Orders: Orders AMB Hemoglobin A1c 07/06/25 Z13.9 - Encounter for screening, unspecified Comprehensive Met. Panel 1 Month R74.8 - Abnormal levels of other serum enzymes Complete Blood Count Auto Diff 3 Months E11.9 - Type 2 diabetes mellitus without complications, E78.5 - Hyperlipidemia, unspecified, I10 - Essential (primary) hypertension Lipid Panel 3 Months E11.9 - Type 2 diabetes mellitus without complications, E78.5 - Hyperlipidemia, unspecified, I10 - Essential (primary) hypertension Vitamin D 25-OH Total 3 Months E11.9 - Type 2 diabetes mellitus without complications, E78.5 - Hyperlipidemia, unspecified, I10 - Essential (primary) hypertension Hemoglobin A1c 3 Months E11.9 - Type 2 diabetes mellitus without complications, E78.5 - Hyperlipidemia, unspecified, I10 - Essential (primary) hypertension Comprehensive [place]. Panel Fast 3 Months E11.9 - Type 2 diabetes mellitus without complications, E78.5 - Hyperlipidemia, unspecified, I10 - Essential (primary) hypertension UA CC w/rflx Micro + Cult 3 Months E11.9 - Type 2 diabetes mellitus without complications, E78.5 - Hyperlipidemia, unspecified, I10 - Essential (primary) hypertension TSH reflex Free T4 3 Months E11.9 - Type 2 diabetes mellitus without complications, E78.5 - Hyperlipidemia, unspecified, I10 - Essential (primary) hypertension Referrals Gastroenterology Referral K76.0 - Fatty (change of) liver, not elsewhere classified, R74.8 - Abnormal levels of other serum enzymes Medications: New rosuvastatin 5 mg PO DAILY 30 tabs 3RF Changed From metformin 500 mg PO BID 90 days 180 tabs 3RF To metformin 1,000 mg (2 x 500 mg) PO BID 360 tabs 3RF 90 days Discontinued atorvastatin Discontinued Reason: Doctor's Order 40 mg PO DAILY 30 tabs 0RF
--- OUTSIDE RECORDS SUMMARY | 2025-07-06 16:44 | XMS_ITS | Clinical Summary ---
Author Organization [address] [facility] Address [address] [place] [address] Phone Care Team Providers Care Adding Machine Operator Name Role Phone StewIrmaElenomaricruz DON Primary Care [...] (LIDODERM) 5 % patchIndications:D iabetic mononeuropathy simplex ([facility] V24, [facility] V28) Apply 1 patch topically 1 (one) time each day. Remove & discard patch within 12 hours or as directed by . 30 each 2 5 09/06/20 25 Active Encounters Date Type Department Care Team Description 06/09/2025 Telephone Orthopedic Surgery [place] [address] [phone] Nick Carcamo DPM 06/08/2025 10:45 AM EDT Consult Orthopedic [place] [address] [phone] Nick Carcamo DPM Diabetic mononeuropathy simplex ([facility] V24, [facility] V28) (Primary Dx); Encounter for diabetic foot exam ([facility] V24, [facility] V28); Callus of foot; Dermatophytosis of nail; [...] 08/09/2025 10:15 AM EST Office Visit Orthopedic [facility] [address] [phone] Nick Carcamo DPM [address] [place] [address] Health Maintenance Due Date [...] patient's age to complete this topic Insurance [facility] [place] [id number] Care Teams Adding Machine Operator Relationship Specialty Start Date End Date Eleno Mathias FNP [address] [place], [place] [phone] PCP - General Family Medicine 04/23/25
--- OUTSIDE RECORDS SUMMARY | 2025-07-06 16:44 | XMS_ITS | Encounter Summary ---
Author Organization [facility] Address [address] [place] [address] Care Team Providers Care Hadoop Admin Name Role Phone Jeff Mathiaslisha DON Primary Care Provider Reason for Visit * Reason Onset Date Comments Medication not covered 06/09/2025 Encounter Details Date Type Department Care Team ([facility] st Contact Info) Description 06/09/2025 Telephone Orthopedic Surgery - [place] [address] [phone] Nick Carcamo, DPM [address] [phone] Social History Tobacco Use Types Packs/Day Years [...] will contact pharmacy by this week * Lisa Ramirez - 06/09/2025 11:04 AM EDT Patient is calling stating that the Lidocaine Patches are not covered by her Insurance. Can a PA bedone ,or is there an alternative Medication. Please advise. She can be reached @ [phone] with any questions. Thanks. documented in this encounter Plan of Treatment Upcoming Encounters Date Type Department Care Team ([facility] st Contact Info) Description 08/09/2025 10:15 AM EST Office Visit Orthopedic Surgery - [place] [address] [phone] Nick Carcamo DPJed [address] [phone] documented as of this encounter Visit Diagnoses Not on filedocumented in this encounter Care Teams Hadoop Admin Relationship Specialty Start Date End Date Eleno Mathias FNP [address] [place] [id number] PCP - General Family Medicine 04/23/25 documented as of this encounter
--- OUTSIDE RECORDS SUMMARY | 2025-07-06 16:44 | XMS_ITS | Clinical Summary ---
Author Organization [facility] Address [address] [place] [address] Phone Care Team Providers Care Extension Associate Name Role Phone Moses Mims MD Primary Care Provider [phone] Allergies No known active allergies Medications No [...] on file Insurance [facility] ONE CARE MEDICARE REPLACEMENT JINA JIMENES [id number] [place] [id number] Care Teams Extension Associate Relationship Specialty Start Date End Date Moses Mims MD [address] [place] [address] [address] AUDELIA Gonzalez [phone] [email or web address] PCP - General Family Medicine 01/26/22 Additional Source Comments The information contained in this document represents components of the legal health record. It is not the complete legal health record.[facility]
--- OUTSIDE RECORDS SUMMARY | 2025-07-06 16:44 | XMS_ITS | Clinical Summary ---
Author Organization [facility] Address [address] [facility] [address] [place] [address] Care Team Providers Care [employer] Special Education Teacher Name Role Phone Moses Mims MD Primary Care Provider [phone] Belem Shelby MD Unavailable [phone] Allergies Active Allergy Reactions Criticality Noted [...] FIT 1954 FOBT 1954 Sigmoidoscopy 1954 Diabetes: Retinopathy Screening 1954 Diabetes: Foot Exam 1964 Pneumococcal Vaccine: 50+ Years (1 of 1 - PCV) 2004 Zoster Vaccines (1 of 2) 2004 Medicare Annual Wellness (AWV) 07/07/2019 Diabetes: Urine Protein Screening 09/26/2021 09/26/2020 Diabetes: Hemoglobin A1C 03/31/2022 03/31/2021, 09/07 Lipid Panel 03/31/2022 03/31/2021, 03/31/2021 Mammogram 11/30/2023 11/30/2021, 11/08, 11/04/2020, Additional history exists Depression Screening 10/07/2024 COVID-19 Vaccine ( season) 2025 12/25/2022, 08/24/2021, 01/14/2021, Additional history exists Influenza Vaccine (#1) 2025 , 08/15/2021, 07/24/2017, [...] performed on a Horizon C unit at [facility] Comparison: Baseline bone mineral density study Findings: [...] was performed [facility] a [facility] Comparison: Baseline bone mineral density study Findings: [...] Most Recently Relevant to [place] [phone] [facility] CARE PLAN MEDICAID COMMON[employer] Care Teams [employer] Special Education Teacher Relationship Specialty Start Date End Date Moses Mims MD PCP - General 11/10/21 Belem Shelby MD [address] [place] [address] 11/10/21
== END 2025-07-06 16:19 | disposition home or self-care (01) ==
LOC: HO.HMCH 15:29
DX: R74.8 Abnormal levels of other serum enzymes (principal); I10 Essential (primary) hypertension; E78.5 Hyperlipidemia, unspecified; E11.9 Type 2 diabetes mellitus without complications; L53.9 Erythematous condition, unspecified

== ENCOUNTER → 2025-07-06 15:28 | Outpatient (BNVA) | payer MEDICARE, SELFPAY | DX: E11.9 Type 2 diabetes mellitus without complications (principal); E78.5 Hyperlipidemia, unspecified; R21 Rash and other nonspecific skin eruption; R74.8 Abnormal levels of other serum enzymes; I10 Essential (primary) hypertension; K76.0 Fatty (change of) liver, not elsewhere classified | CPT/HCPCS: 83036 ==